=== PATIENT | male | born 1980 | race Hispanic/Latino ===

== ENCOUNTER 2019-04-13 17:03 | Emergency (ER) | payer OTHER ==
[~2019-04-13] VITALS: Ht 177.8 cm; Wt 107.5 kg
--- OUTSIDE RECORDS SUMMARY | 2019-04-13 17:07 | XMS REPORT | Continuity of Care Document ---
Author Author [facility] Interface Address Unknown Phone Unavailable Problems Problem Status Onset Date Classification Date Reported Comments Source Hyperlipidemia<sup>3, 4</sup> Active 03/02/2014 Problem 03/22/2019 Data migrated from [employer] [facility] on 04/30/15. [facility] Knee pain<sup>5, 6</sup> Active 02/19/2014 Problem 03/22/2019 Data migrated from [facility] on 04/30/15. [facility] Disorder of skin<sup>1, 2</sup> Active 11/15/2013 Problem 03/22/2019 Data migrated from [facility] on 04/30/15. [facility] Obesity Active Problem 03/22/2019 [facility] Medications Medication Details Route Status Patient Instructions Ordering Provider Order Date Source Allergies, Adverse Reactions, Alerts Substance Category Reaction Severity Reaction type Status Date Reported Comments Source Immunizations Immunization Date Given Site Status Last Updated Comments Source Results Order Name Results Value Reference Range Date Interpretation Comments Source Vital Signs Vital Sign Value Date Comments Source Systolic (mm Hg) 138 09/02/2018 [facility] Diastolic (mm Hg) 67 09/02/2018 [facility] Temperature Oral (F) 98.9 F 09/02/2018 [facility] Weight 106.818 09/02/2018 [facility] BMI Calculated 33.79 09/02/2018 [facility] Height 177.8 cm 09/02/2018 [facility] Systolic (mm Hg) 152 09/02/2018 [facility] Diastolic (mm Hg) 103 09/02/2018 [facility] Heart Rate 100 09/02/2018 [facility] Respitory Rate 16 09/02/2018 [facility] Encounters Location Location Details Encounter Type Encounter Number Reason For Visit Attending Provider ADM Date DC Date Status Source Outpatient [id number] NANCY VELA 09/02/2018 Active [facility] Out[facility] [id number] Nancy Vela 09/02/2018 09/03/2018 [facility] Procedures Procedure Code Date Perfomer Comments Source Appendectomy [id number] 11/29/1999 [facility] Operation<sup>1</sup> [id number] 11/29/1997 right ankle surgery [facility]
--- OUTSIDE RECORDS SUMMARY | 2019-04-13 17:07 | XMS REPORT | Summary of Care ---
Author Author [facility] Organization [facility] Address Unknown Phone Unavailable Encounter CHAD Fair(RINA) [id number] Date(s): 09/02/18 - 09/02/18 [facility] [address] [place] [address]- Discharge Disposition: Home or Self Care Attending Physician: Nancy Vela MD Vital Signs Most recent to 1 2 oldest [Reference Range]: Height 177.8 cm (09/02/18 8:46 AM) Temperature Oral 98.9 DegF [96.4-99.1 DegF] (09/02/18 8:46 AM) Blood Pressure 138/67 mmHg 152/103 mmHg [90-140/60-90 mmHg] (09/02/18 9:29 AM) *HI* (09/02/18 8:46 AM) Respiratory Rate 16 BRMIN [14-20 BRMIN] (09/02/18 8:46 AM) Peripheral Pulse 100 bpm Rate [60-100 bpm] (09/02/18 8:46 AM) Weight 106.818 kg (09/02/18 8:46 AM) Body Mass Index 33.79 m2 (09/02/18 8:46 AM) Problem List Condition Effective Dates Status Health Status Informant Disorder of skin1, 2 11/15/13 Active Hyperlipidemia3, 4 03/02/14 Active Knee pain5, 6 02/19/14 Active Obesity(Confirmed) Active 1Data migrated from [employer] on 04/30/15. 2Data migrated from [employer] on 04/30/15. 3Data migrated from [employer] on 04/30/15. 4Data migrated from [employer] on 04/30/15. 5Data migrated from [employer] on 04/30/15. 6Data migrated from [employer] on 04/30/15. Allergies, Adverse Reactions, Alerts Substance Reaction Severity Status NKDA Active Medications No Known Medications Results No data available for this section Immunizations No data available for this section Procedures Procedure Date Related Diagnosis Body Site Status Appendectomy 1999 Completed Operation1 1997 Completed 1right ankle surgery Social History Social History Type Response Alcohol Current, Type Beer. Frequency: 1-2 times per week. Smoking Status Current some day smoker; Type: Cigarettes; Exposure to Tobacco Smoke None; Cigarette Smoking Last 365 Days Yes; Reg Smoking Cessation Counseling No entered on: 09/02/18 Assessment and Plan No data available for this section
[2019-04-13] MEDS ORDERED: KETOROLAC TROMETHAMINE 60 MG/2 ML VIAL ONE (17:24)
[2019-04-13] MEDS ORDERED: KETOROLAC TROMETHAMINE 60 MG/2 ML VIAL IM ONE (17:30)
== END 2019-04-13 17:42 | disposition home or self-care (01) ==
LOC: FSED 17:03
DX: S83.411A Sprain of medial collateral ligament of right knee, initial encounter (principal); M25.561 Pain in right knee; M17.31 Unilateral post-traumatic osteoarthritis, right knee
CPT/HCPCS: 99283; J1885